=== PATIENT | female | born 1960 | race Caucasian/White ===

== ENCOUNTER → 2017-12-12 | Outpatient (CLI) | payer OTHER | LOC: NUC 10:24 | DX: M81.0 Age-related osteoporosis without current pathological fracture (principal); M85.88 Other specified disorders of bone density and structure, other site; Z78.0 Asymptomatic menopausal state ==

== ENCOUNTER → 2019-01-01 | Outpatient (CLI) | payer OTHER | LOC: RAD 12:07 | DX: M48.02 Spinal stenosis, cervical region (principal); M54.12 Radiculopathy, cervical region ==

== ENCOUNTER → 2020-07-04 | Outpatient (CLI) | payer OTHER | LOC: NUC 14:52 | PROVIDERS: ATTEND Family Medicine | DX: M81.0 Age-related osteoporosis without current pathological fracture (principal) ==

== ENCOUNTER → 2021-07-18 | Outpatient (CLI) | payer OTHER | LOC: MRI 13:52 | PROVIDERS: ATTEND Family Medicine | DX: M47.26 Other spondylosis with radiculopathy, lumbar region (principal); M48.061 Spinal stenosis, lumbar region without neurogenic claudication; M43.17 Spondylolisthesis, lumbosacral region; M47.817 Spondylosis without myelopathy or radiculopathy, lumbosacral region; M48.07 Spinal stenosis, lumbosacral region; M51.16 Intervertebral disc disorders with radiculopathy, lumbar region; G96.191 Perineural cyst ==

== ENCOUNTER → 2021-11-29 | Outpatient (CLI) | payer OTHER | LOC: RAD 14:24 | PROVIDERS: ATTEND Nurse Practitioner | DX: M85.88 Other specified disorders of bone density and structure, other site (principal); R07.81 Pleurodynia; R07.89 Other chest pain ==

== ENCOUNTER → 2022-01-08 | Outpatient (CLI) | payer OTHER | LOC: CAT 09:22 | PROVIDERS: ATTEND Nurse Practitioner | DX: Z13.6 Encounter for screening for cardiovascular disorders (principal); I25.10 Atherosclerotic heart disease of native coronary artery without angina pectoris; E78.00 Pure hypercholesterolemia, unspecified ==